=== PATIENT | female | born 1995 | race Caucasian/White ===

== ENCOUNTER 2017-02-21 22:50 | Emergency (ER) | payer OTHER ==
[2017-02-21 23:00] LABS: PH,URINE 6.5 (4.5-8); URINE APPEARANCE Clear; URINE BILIRUBIN Negative (NEGATIVE); URINE GLUCOSE (UA) Negative (NEGATIVE); URINE KETONE Trace (NEGATIVE); URINE NITRITE Negative (NEGATIVE); URINE PROTEIN Negative (NEGATIVE); URINE UROBILINOGEN 0.2 (0.2-1.0)
[2017-02-21 23:01] VITALS: BP 124/77; PULSE 67; TEMP 98.2; BMI 26.5
[2017-02-21 23:02] LABS: URINE BLOOD Trace-intact (NEGATIVE); URINE COLOR YELLOW; URINE LEUK ESTERASE TRACE (NEGATIVE)
[2017-02-21 23:08] LABS: URINE BACTERIA FEW /hpf (NEGATIVE)
--- NOTE | 2017-02-21 23:41 | PDOC ---
History of Present Illness - General Chief Complaint: Pain, Acute Stated Complaint: ABD PAIN Time Seen by Provider: 02/21/17 23:08 History Source: Patient, Parent(s) Exam Limitations: No Limitations - History of Present Illness Initial Comments: 02/21/17 23:36 CHIEF COMPLAINT: Abdominal pain for 3 days HISTORY OF PRESENT ILLNESS: This is a healthy 22-year-old female who presents with intermittent abdominal pains. 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 There was nausea but no vomiting. At that time she was having some diarrhea. The symptoms got better and went away. 3 days ago she developed diffuse abdominal pain in the evening. It felt like a big gas bubble. She couldn't get comfortable and had to walk around to try to find a position of comfort. At time she was doubled over. The symptoms improved but then again recurred last night and then again tonight. There is nausea but no vomiting. Over the last 3 days she has had normal daily bowel movements. There is no dysuria, frequency, or urgency. There is no fever or chills. She has a normal physiological vaginal discharge. Her last menstrual period was 2 weeks ago and lasted 4 days. REVIEW OF SYSTEMS: GENERAL/CONSTITUTIONAL: No fever or chills. No weakness. No weight change. HEAD, EYES, EARS, NOSE AND THROAT: No change in vision. No ear pain or discharge. No sore throat. CARDIOVASCULAR: No chest pain or shortness of breath. RESPIRATORY: No cough, wheezing, or hemoptysis. GASTROINTESTINAL: Positive nausea but no vomiting. Patient had diarrhea 2 weeks ago but her bowel movements have been normal over the last week or so. Positive abdominal pains, see history of present illness. GENITOURINARY: No dysuria, frequency, or change in urination. MUSCULOSKELETAL: No joint or muscle swelling or pain. No neck or back pain. SKIN AND BREASTS: No rash or easy bruising. NEUROLOGIC: No headache, vertigo, loss of consciousness, or loss of sensation. PSYCHIATRIC: No depression or anxiety. Positive stress related to recruitment at her [employer] [facility] [place]. ENDOCRINE: No increased thirst. No abnormal weight change. HEMATOLOGIC/LYMPHATIC: No anemia, easy bleeding, or history of blood clots. ALLERGIC/IMMUNOLOGIC: No hives or skin allergy. No latex allergy. Patient is not sexually active. She states she is a virgin. Past History - Past Medical History Allergies/Adverse Reactions: Allergies Allergy/AdvReac Type Severity Reaction Status Date / Time amoxicillin Allergy Verified 02/21/17 22:51 Home Medications: Ambulatory Orders Multivitamin [One Daily] 1 each PO DAILY 02/21/17 Norethindrone AC-Eth Estradiol [Junel 1.5 mg-30 Mcg Tablet] 1 each PO DAILY 11/02 Ondansetron [Zofran *Odt*] 8 mg SL TID PRN #20 od.tablet 02/22/17 GI Disorders: Yes (SOME LACTOSE INTOLERANCE) Other medical history: SCOLIOSIS - Immunization History Immunization Up to Date: Yes - Suicide/Smoking/Psychosocial Hx Smoking History: Never smoked *Physical Exam - Vital Signs Last Vital Signs Temp Pulse Resp BP Pulse Ox 98.2 F 67 16 124/77 99 02/21/17 22:54 02/21/17 22:54 02/21/17 22:54 02/21/17 22:54 02/21/17 22:54 - Physical Exam Comments: 02/21/17 23:40 GENERAL: The patient is awake, alert, and fully oriented, in no acute distress. She is conversant and animated. She appears well. HEAD: Normal with no signs of trauma. EYES: Pupils equal, round and reactive to light, extraocular movements intact, sclera anicteric, conjunctiva clear. ENT: Ears normal, nares patent, oropharynx clear without exudates. Moist mucous membranes. NECK: Normal range of motion, supple without lymphadenopathy, JVD, or masses. LUNGS: Breath sounds equal, clear to auscultation bilaterally. No wheezes, and no crackles. HEART: Regular rate and rhythm, normal S1 and S2 without murmur, rub or gallop. ABDOMEN: Soft, nontender, normoactive bowel sounds. No guarding, no rebound. No masses. Normal exam to deep palpation in all quadrants. BACK: No CVA tenderness or flank tenderness. EXTREMITIES: Normal range of motion, no edema. No clubbing or cyanosis. No cords, erythema, or tenderness. NEUROLOGICAL: Cranial nerves II through XII grossly intact. Normal speech, normal gait. PSYCH: Normal mood, normal affect. SKIN: Warm, Dry, normal turgor, no rashes or lesions noted. 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 She had at school for several days during a stressful period, that time associated with diarrhea. It went away, and now comes back with diffuse abdominal pains intermittently, typically occurring in the evening. The pain is throughout the entire abdomen, feels like a cramp, she has to walk around or double over due to the pain. There is nausea but no vomiting. There is no fever. There is no constipation or diarrhea at this time. On examination, the abdomen is completely benign. Patient was given oral Zofran with resolution of symptoms. The characteristics of the pain sound like functional abdominal pain consistent with intestinal spasm. Laboratory workup sent and is currently pending. If the labs are unremarkable, patient is stable for discharge home with oral Zofran as needed. Patient endorsed to Dr. Mabel Child at midnight with laboratory results pending. *DC/Admit/Observation/Transfer Diagnosis at time of Disposition: Diffuse abdominal pain - Discharge Dispostion Condition at time of disposition: Improved Admit: No - Prescriptions Prescriptions: Ondansetron [Zofran *Odt*] 8 mg SL TID PRN #20 od.tablet PRN Reason: abdominal pain or nausea - Patient Instructions Printed Discharge Instructions: DI for Abdominal Pain-Adult
[2017-02-21] MEDS ORDERED: ONDANSETRON *ODT* 4 MG TABLET SL ONE (23:48)
[2017-02-21] MEDS ORDERED: ONDANSETRON *ODT* 4 MG TABLET ONE (23:48)
--- NOTE | 2017-02-22 00:30 | PDOC ---
*Physical Exam - Vital Signs Last Vital Signs Temp Pulse Resp BP Pulse Ox 98.2 F 67 16 124/77 99 02/21/17 22:54 02/21/17 22:54 02/21/17 22:54 02/21/17 22:54 02/21/17 22:54 ED Treatment Course - LABORATORY CBC & Chemistry Diagram: 02/21/17 23:37 02/21/17 23:37 - ADDITIONAL ORDERS Additional order review: Laboratory Results 02/21/17 22:55 Urine Color Yellow Urine Appearance Clear Urine pH 6.5 Ur Specific [place] 1.025 Urine Protein Negative Urine Glucose (UA) Negative Urine Ketones Trace Urine Blood Trace-intact H Urine Nitrite Negative Urine Bilirubin Negative Urine Urobilinogen 0.2 Ur Leukocyte Esterase Trace H Urine RBC 1-2 Urine WBC 4-5 Urine Bacteria Few Urine HCG, Qual Negative - Medications Given in the ED: ED Medications Discontinued Medications Generic Name Dose Route Start Last Admin Trade Name Freq PRN Reason Stop Dose Admin Ondansetron HCl 4 mg 02/21/17 23:48 02/21/17 23:53 Zofran Odt - SL 02/21/17 23:49 4 mg ONCE ONE Administration Progress Note - Progress Note Progress Note: Care of this patient received from Dr. Brown. CBC/chemistry profile/urinalysis results reviewed. WBC slightly elevated at 11, 300; urinalysis shows a few bacteria/4-5 wbcs/1-2 RBCs Laboratory evaluation otherwise without significant abnormalities Patient continues to be comfortable without further pain (symptoms had resolved after Zofran by mouth). Abdominal examination reveals no significant tenderness or masses; no rebound present. Urine culture and sensitivity sent Risks and benefits of further diagnostic evaluation (i.e. abdominal/pelvic CT) discussed with the patient and her parents. Although there is minimal elevation of her white blood cell count, since the patient has no significant pain or tenderness currently, acute pathology such as appendicitis is unlikely. Since possibility of appendicitis is still present, patient is advised closely to return to ER if she has any recurrence of her pain or experiences fever/ vomiting. Patient and her parents understand plan and agree to it. *DC/Admit/Observation/Transfer Diagnosis at time of Disposition: Abdominal pain, diffuse - Discharge Dispostion Disposition: HOME Condition at time of disposition: Improved - Prescriptions Prescriptions: Ondansetron [Zofran *Odt*] 8 mg SL TID PRN #20 od.tablet PRN Reason: abdominal pain or nausea - Referrals Referrals: STAFF,NOT ON [Primary Care Provider] - - Patient Instructions Printed Discharge Instructions: DI for Abdominal Pain-Adult Additional Instructions: Zofran ODT 8 mg up to 3 times a day as needed Light diet; advance as tolerated Return to ER if you have worsening pain or experience vomiting/fever Follow-up with your general doctor within the next 3-4 days - Post Discharge Activity
[2017-02-22 01:15] LABS: BASOPHIL 0.4 % (0-2.0); EOSINOPHIL 1.2 % (0-4.5); MCH 28.5 pg (25.7-33.7); MCHC 33.5 g/dl (32.0-36.0); MEAN PLT VOLUME 7.9 fl (7.5-11.1); NEUTROPHILS 72.2 % (42.8-82.8); PLATELET COUNT 293 K/MM3 (134-434); RDW 13.3 % (11.6-15.6); WHITE BLOOD COUNT 11.3 K/mm3 (4.0-10.0)
[2017-02-22 01:41] LABS: ALBUMIN 3.7 g/dl (3.4-5.0); ANION GAP 10 (8-16); BILIRUBIN,TOTAL 0.8 mg/dL (0.2-1.0); CALCIUM 8.9 mg/dL (8.5-10.1); CO2 26 mmol/L (21-32); CREATININE 0.7 mg/dL (0.55-1.02); GLUCOSE,RANDOM 111 mg/dL (74-106); SGOT/AST 13 U/L (15-37); SGPT/ALT 20 U/L (12-78); TOT PROT 7.5 g/dl (6.4-8.2)
[2017-02-22 01:42] LABS: ALK PHOS 58 U/L (45-117)
== END 2017-02-22 01:55 | disposition home or self-care (01) ==
LOC: FER 22:50
DX: R10.84 Generalized abdominal pain (principal); M41.9 Scoliosis, unspecified
CPT/HCPCS: 36415; 80053; 81003; 81015; 83690; 84703; 85025; 99282-25